=== PATIENT | female | born 1980 | race Two or more races ===

== ENCOUNTER 2020-09-21 06:21 | Day surgery (SDC) | payer OTHER ==
[2020-09-21] MEDS ORDERED: NEXIUM 24HR20 MG PO (07:57)
== END 2020-09-21 09:15 | disposition home or self-care (01) ==
LOC: AMB-ENDOS 06:21
PROVIDERS: ATTEND Surgery
DX: D13.1 Benign neoplasm of stomach (principal); K44.9 Diaphragmatic hernia without obstruction or gangrene; Z20.822 Contact with and (suspected) exposure to COVID-19